=== PATIENT | female | born 1930 | race Caucasian/White ===

== ENCOUNTER 2018-06-10 11:06 | Emergency (ER) | payer OTHER ==
[~2018-06-10] VITALS: Ht 157.5 cm; Wt 48.1 kg
[~2018-06-10 11:06] MED LIST: ANTIVERT25 M1 PO; ASPIR 8181 MG PO; LORADAMED10 MG PO; NEURONTIN300 MG PO; PROTONIX40 M1; SIMVASTATIN10 MG PO; SYNTHROID50 MCG PO; SYNTHROID75 MCG PO
[2018-06-10] MEDS ORDERED: TESSALON PERLE100 M1 PO (14:52)
== END 2018-06-10 15:09 | disposition home or self-care (01) ==
LOC: ER 11:06
DX: J40 Bronchitis, not specified as acute or chronic (principal); J11.1 Influenza due to unidentified influenza virus with other respiratory manifestations

== ENCOUNTER 2020-12-23 11:04 | Emergency (ER) | payer OTHER ==
[~2020-12-23] VITALS: Ht 157.5 cm; Wt 45.4 kg
[~2020-12-23 11:04] MED LIST changes: +TESSALON PERLE100 M1 PO
[2020-12-23] MEDS ORDERED: COZAAR25 MG PO (11:09)
[2020-12-23] MEDS ORDERED: DICLOFENAC SODI50 MG PO (16:26)
[2020-12-23] MEDS ORDERED: ORPHENADRINE C100 MG PO (16:26)
== END 2020-12-23 16:40 ==
LOC: ER 11:04
DX: M54.12 Radiculopathy, cervical region (principal); M54.2 Cervicalgia; R07.89 Other chest pain

== ENCOUNTER 2021-10-16 12:13 | Emergency (ER) | payer OTHER ==
[~2021-10-16] VITALS: Ht 157.5 cm; Wt 45.4 kg
[~2021-10-16 12:13] MED LIST changes: +COZAAR25 MG PO; +DICLOFENAC SODI50 MG PO; +ORPHENADRINE C100 MG PO
[2021-10-16] MEDS ORDERED: FOLINIC-PLUS C1 EACH PO (12:44)
[2021-10-16] MEDS ORDERED: LIPO-FLAVONOID1 EACH PO (12:44)
[2021-10-16] MEDS ORDERED: OZOBAX5 MG/5 ML PO (12:44)
== END 2021-10-16 17:19 | disposition home or self-care (01) ==
LOC: ER 12:13
DX: R07.9 Chest pain, unspecified (principal); I10 Essential (primary) hypertension